=== PATIENT | male | born 1965 | race Hispanic/Latino ===

== ENCOUNTER 2020-11-03 12:58 | Emergency (ER) | payer MEDICAID ==
[2020-11-03 14:07] LABS: Bilirubin,Urine NEG (Negative); Blood,Urine NEG (Negative); Color,Urine Yellow (Yellow); Mucus,Urine FEW /HPF; Protein,Urine <15 mg/dL mg/dL (Negative); Urobilinogen,Urine < 2.0 mg/dL (<2.0)
[2020-11-03 14:35] LABS: Basophils % (Auto) 0.6 % (0.0-1.8); Eosinophils # (Auto) 0.1 K/mm3 (0.0-0.4); Eosinophils % (Auto) 2.1 % (0.0-4.3); Hematocrit 34.1 % (35.5-45.6); Hemoglobin 12.2 gm/dl (11.8-15.2); Lymphocytes # (Auto) 1.6 K/mm3 (1.2-5.4); Lymphocytes % (Auto) 27.6 % (13.4-35.0); Mean Corpuscular HGB Conc 36 % (32-34); Mean Corpuscular Volume 97 fl (84-94); Monocytes # (Auto) 0.7 K/mm3 (0.0-0.8); Monocytes % (Auto) 11.5 % (0.0-7.3); Platelet Count 263 K/mm3 (140-440); Red Cell Distribution Width 12.7 % (13.2-15.2)
[2020-11-03 15:03] LABS: Alanine Aminotransferase 27 units/L (7-56); Albumin 4.4 g/dL (3.9-5); BUN/Creatinine Ratio 13; Blood Urea Nitrogen 14 mg/dL (9-20); Calcium 8.8 mg/dL (8.4-10.2); Hemolysis Index 6
[2020-11-03] MEDS ORDERED: ONDANSETRON 4 MG/2 ML INJ IV ONE (17:04)
[2020-11-03] MEDS ORDERED: HYDROmorphone 1 MG/1 ML INJ IV ONE ×2 (17:04→20:08)
[2020-11-03] MEDS ORDERED: SODIUM CHLORIDE 0.9% 1000 ML 1,000 ML IV ONE (17:04)
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
[2020-11-03 22:32] VITALS: BP 140/85
== END 2020-11-03 22:31 | disposition home or self-care (01) ==
LOC: ED 12:58
DX: R10.84 Generalized abdominal pain (principal); R14.0 Abdominal distension (gaseous); R11.0 Nausea; I10 Essential (primary) hypertension; M19.90 Unspecified osteoarthritis, unspecified site; F32.9 Major depressive disorder, single episode, unspecified; G47.00 Insomnia, unspecified; Z86.69 Personal history of other diseases of the nervous system and sense organs; Z87.891 Personal history of nicotine dependence; Z72.89 Other problems related to lifestyle; Z79.899 Other long term (current) drug therapy
CPT/HCPCS: 36415; 74177; 80053; 81001; 83690; 85025; 87086; 96361; 96374; 96375; 96376; 99284; J1170; J2405; J7030; Q9967

== ENCOUNTER 2021-02-06 16:45 | Emergency (ER) | payer MEDICAID ==
[2021-02-06 17:05] VITALS: BP 123/74
[2021-02-06] MEDS ORDERED: ONDANSETRON 4 MG/2 ML INJ IV ONE (17:46)
[2021-02-06] MEDS ORDERED: SODIUM CHLORIDE 0.9% 1000 ML 1,000 ML IV ONE (17:46)
[2021-02-06] MEDS ORDERED: FAMOTIDINE 20 MG/2 ML INJ IV ONE (17:46)
[2021-02-06] MEDS ORDERED: HYDROmorphone 1 MG/1 ML INJ IV ONE (17:46)
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
[2021-02-06 18:43] LABS: Basophils % (Auto) 0.5 % (0.0-1.8); Eosinophils # (Auto) 0.1 K/mm3 (0.0-0.4); Eosinophils % (Auto) 2.1 % (0.0-4.3); Hematocrit 32.1 % (35.5-45.6); Hemoglobin 11.4 gm/dl (11.8-15.2); Lymphocytes # (Auto) 1.1 K/mm3 (1.2-5.4); Lymphocytes % (Auto) 16.9 % (13.4-35.0); Mean Corpuscular HGB Conc 36 % (32-34); Mean Corpuscular Volume 98 fl (84-94); Monocytes # (Auto) 0.7 K/mm3 (0.0-0.8); Monocytes % (Auto) 11.7 % (0.0-7.3); Platelet Count 207 K/mm3 (140-440); Red Blood Count 3.28 M/mm3 (3.65-5.03); Red Cell Distribution Width 12.5 % (13.2-15.2)
[2021-02-06 18:51] LABS: Alanine Aminotransferase 19 units/L (7-56); Albumin 3.9 g/dL (3.9-5); BUN/Creatinine Ratio 16; Blood Urea Nitrogen 14 mg/dL (9-20); Calcium 8.9 mg/dL (8.4-10.2); Hemolysis Index 163
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
[2021-02-06] MEDS ORDERED: MORPHINE 2 MG/1 ML INJ IV ONE (20:47)
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
== END 2021-02-06 21:45 | disposition home or self-care (01) ==
LOC: ED 16:45
DX: R10.84 Generalized abdominal pain (principal); R56.9 Unspecified convulsions; I10 Essential (primary) hypertension; Z87.891 Personal history of nicotine dependence; F10.20 Alcohol dependence, uncomplicated
CPT/HCPCS: 36415; 74177; 80053; 83690; 85025; 96361; 96374; 96375; 99284; J1170; J2270; J2405; J7030; Q9967

== ENCOUNTER 2021-12-20 11:14 | Inpatient (IN) | payer MEDICAID ==
[2021-12-20 12:46] LABS: Hemoglobin 13.3 gm/dl (11.8-15.2); Mean Corpuscular HGB Conc 34 % (32-34); Mean Corpuscular Volume 98 fl (84-94); Platelet Count 261 K/mm3 (140-440); Red Cell Distribution Width 13.1 % (13.2-15.2)
[2021-12-20 13:09] LABS: Alanine Aminotransferase 42 units/L (7-56); Albumin 4.8 g/dL (3.9-5); BUN/Creatinine Ratio 15; Blood Urea Nitrogen 16 mg/dL (9-20); Calcium 9.1 mg/dL (8.4-10.2); Hemolysis Index 20
[2021-12-20] MEDS ORDERED: FAMOTIDINE 20 MG/2 ML INJ IV ONE (16:06)
[2021-12-20] MEDS ORDERED: HYDROmorphone 1 MG/1 ML INJ IV ONE ×2 (16:06→18:37)
[2021-12-20] MEDS ORDERED: ONDANSETRON 4 MG/2 ML INJ IV ONE (16:06)
[2021-12-20] MEDS ORDERED: SODIUM CHLORIDE 0.9% 1000 ML 1,000 ML IV ONE (16:06)
[2021-12-20 17:09] LABS: Basophils % (Manual) 0 % (0.0-1.8); Large Platelets 1+; RBC Morphology Normal; Total Cells Counted 100
[2021-12-20 17:10] LABS: Platelet Estimate Consistent w Auto
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
[2021-12-20] MEDS ORDERED: LIDOCAINE VISCOUS 2% 15 ML ORAL LIQD PO ONE (18:32)
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
[2021-12-20] MEDS ORDERED: ACETAMINOPHEN 325 MG TAB PO PRN (19:00)
[2021-12-20] MEDS ORDERED: ONDANSETRON 4 MG/2 ML INJ IV PRN (19:00)
[2021-12-20] MEDS ORDERED: MIDAZOLAM 2 MG/2 ML INJ IV NR (19:00)
[2021-12-20] MEDS ORDERED: ALBUTEROL 2.5 MG/3 ML NEBU IH PRN (19:00)
[2021-12-20] MEDS ORDERED: oxyCODONE /ACETAMINOPHEN 5-325MG TAB PO PRN (19:00)
--- NOTE | 2021-12-20 20:04 | XRay Report ---
Abdomen single view INDICATION: Abdominal pain IMPRESSION: Esophagogastric tube terminates in the region of the upper stomach. Signer Name: Solomon Cyr MD Signed: 12/20/2021 8:00 PM Workstation Name: [email or web address]
[2021-12-20] MEDS: HYDROmorphone 0.5 MG/0.5 ML INJ IV PRN (23:12)
[2021-12-21] MEDS: SODIUM CHLORIDE 0.9% 1000 ML 1,000 ML IV SCH ×3 (01:40→22:05)
[2021-12-21] MEDS ORDERED: HYDROmorphone 0.5 MG/0.5 ML INJ IV ONE (03:30)
[2021-12-21] MEDS ORDERED: ZOLPIDEM 5 MG TAB PO ONE (03:50)
[2021-12-21 05:41] LABS: BUN/Creatinine Ratio 16; Blood Urea Nitrogen 14 mg/dL (9-20); Calcium 8.7 mg/dL (8.4-10.2); Hemolysis Index 13
[2021-12-21] MEDS: HYDROmorphone 0.5 MG/0.5 ML INJ IV PRN ×2 (09:24→17:16)
[2021-12-21] MEDS ORDERED: LORazepam 2 MG/ML VIAL IV PRN (09:51)
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
[2021-12-21] MEDS: hydrALAZINE 20 MG/1 ML INJ IV PRN ×3 (11:12→22:03)
[2021-12-21] MEDS: LORazepam 0.5 MG TAB PO PRN (13:01)
[2021-12-21] MEDS: levETIRAcetam 250 MG in DEXTROSE 5% IN WATER (50 ML) 50 ML IV SCH ×2 (13:01→23:25)
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
[2021-12-21] MEDS ORDERED: ZOLPIDEM 5 MG TAB PO SCH (23:01)
[2021-12-22] MEDS: LORazepam 0.5 MG TAB PO PRN (01:14)
[2021-12-22] MEDS: HYDROmorphone 0.5 MG/0.5 ML INJ IV PRN ×3 (01:14→17:19)
[2021-12-22] MEDS ORDERED: DICYCLOMINE 20 MG TAB PO PRN (08:06)
[2021-12-22] MEDS ORDERED: BUTALB/ACETAMINOPHEN/CAFFEINE TAB PO PRN (08:06)
[2021-12-22] MEDS ORDERED: ALPRAZolam 1 MG TAB PO PRN (08:06)
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
[2021-12-22] MEDS: levETIRAcetam 500 MG TAB PO SCH ×2 (09:41→22:11)
[2021-12-22] MEDS: LOSARTAN 50 MG TAB PO SCH (09:41)
[2021-12-22] MEDS: FENOFIBRATE 145 MG TAB PO SCH (09:42)
[2021-12-22] MEDS ORDERED: NIFEdipine XL 60 MG TAB PO SCH (10:00)
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
[2021-12-22] MEDS ORDERED: ONDANSETRON AS SCH (14:00)
[2021-12-22] MEDS ORDERED: SODIUM CHLORIDE AS SCH (14:00)
[2021-12-22] MEDS: GABAPENTIN 300 MG CAP PO SCH ×2 (14:00→22:09)
[2021-12-22] MEDS: CYCLOBENZAPRINE 10 MG TAB PO SCH ×2 (14:01→22:09)
[2021-12-22] MEDS: SODIUM CHLORIDE 0.9% 1000 ML 1,000 ML IV SCH ×2 (14:07→22:11)
[2021-12-22] MEDS ORDERED: TAMSULOSIN 0.4 MG CAP PO SCH (22:00)
[2021-12-22] MEDS ORDERED: ZOLPIDEM 5 MG TAB PO PRN (22:00)
[2021-12-22] MEDS ORDERED: TAMSULOSIN PO SCH (22:00)
[2021-12-22] MEDS: hydrALAZINE 20 MG/1 ML INJ IV PRN (22:12)
[2021-12-23 05:27] LABS: Basophils % (Auto) 0.4 % (0.0-1.8); Eosinophils # (Auto) 0.1 K/mm3 (0.0-0.4); Eosinophils % (Auto) 0.9 % (0.0-4.3); Hematocrit 39.2 % (35.5-45.6); Hemoglobin 13.3 gm/dl (11.8-15.2); Lymphocytes # (Auto) 0.9 K/mm3 (1.2-5.4); Lymphocytes % (Auto) 11.6 % (13.4-35.0); Mean Corpuscular HGB Conc 34 % (32-34); Mean Corpuscular Volume 97 fl (84-94); Monocytes # (Auto) 0.8 K/mm3 (0.0-0.8); Monocytes % (Auto) 9.4 % (0.0-7.3); Platelet Count 265 K/mm3 (140-440); Red Blood Count 4.06 M/mm3 (3.65-5.03)
[2021-12-23] MEDS: CYCLOBENZAPRINE 10 MG TAB PO SCH ×2 (05:28→13:06)
[2021-12-23] MEDS: HYDROmorphone 0.5 MG/0.5 ML INJ IV PRN (05:28)
[2021-12-23] MEDS: GABAPENTIN 300 MG CAP PO SCH ×2 (05:28→13:06)
[2021-12-23] MEDS: SODIUM CHLORIDE 0.9% 1000 ML 1,000 ML IV SCH ×2 (05:28→13:06)
[2021-12-23 05:49] LABS: BUN/Creatinine Ratio 15; Blood Urea Nitrogen 12 mg/dL (9-20); Calcium 8.9 mg/dL (8.4-10.2); Hemolysis Index 6
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
[2021-12-23] MEDS ORDERED: DICYCLOMINE 20 MG TAB PO PRN (09:48)
[2021-12-23] MEDS ORDERED: CITALOPRAM HYDROBROMIDE 40 MG PO SCH (10:00)
[2021-12-23] MEDS ORDERED: NIFEdipine XL 60 MG TAB PO SCH (10:00)
[2021-12-23] MEDS ORDERED: TAMSULOSIN 0.4 MG CAP PO SCH (10:00)
[2021-12-23] MEDS ORDERED: FENOFIBRATE 145 MG TAB PO SCH (10:00)
[2021-12-23] MEDS: levETIRAcetam 500 MG TAB PO SCH (10:13)
[2021-12-23] MEDS: FENOFIBRATE 145 MG TAB PO SCH (10:14)
[2021-12-23] MEDS: LOSARTAN 50 MG TAB PO SCH (10:14)
[2021-12-23] MEDS ORDERED: CITALOPRAM 20 MG TAB PO SCH (10:30)
[2021-12-23 16:53] VITALS: BP 181/98
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
--- NOTE | 2021-12-23 17:56 | Progress Note ---
Assessment and Plan Pt tolerated full liquid diet. OK to dc. Subjective Date of service: 12/23/21 Narrative: Pt tolerated full liquid diet. OK to dc. Objective Vital Signs - 12hr 12/23/21 12/23/21 12/23/21 08:54 10:13 10:14 Temperature Pulse Rate 78 73 Respiratory Rate Blood Pressure 182/85 182/85 O2 Sat by Pulse 98 95 Oximetry 12/23/21 12/23/21 12/23/21 11:00 11:21 16:07 Temperature 98.3 F 98.1 F Pulse Rate 85 82 Respiratory 20 18 18 Rate Blood Pressure 176/97 181/98 O2 Sat by Pulse 98 92 93 Oximetry - Labs 12/23/21 04:43 12/23/21 04:43 Diabetes panel 12/23/21 Range/Units 04:43 Sodium 135 L (137-145) mmol/L Potassium 4.0 (3.6-5.0) mmol/L Chloride 103.9 (98-107) mmol/L Carbon Dioxide 21 L (22-30) mmol/L BUN 12 (9-20) mg/dL Creatinine 0.8 (0.8-1.3) mg/dL Glucose 116 H (75-100) mg/dL Calcium 8.9 (8.4-10.2) mg/dL Calcium panel 12/23/21 Range/Units 04:43 Calcium 8.9 (8.4-10.2) mg/dL Pituitary panel 12/23/21 Range/Units 04:43 Sodium 135 L (137-145) mmol/L Potassium 4.0 (3.6-5.0) mmol/L Chloride 103.9 (98-107) mmol/L Carbon Dioxide 21 L (22-30) mmol/L BUN 12 (9-20) mg/dL Creatinine 0.8 (0.8-1.3) mg/dL Glucose 116 H (75-100) mg/dL Calcium 8.9 (8.4-10.2) mg/dL Adrenal panel 12/23/21 Range/Units 04:43 Sodium 135 L (137-145) mmol/L Potassium 4.0 (3.6-5.0) mmol/L Chloride 103.9 (98-107) mmol/L Carbon Dioxide 21 L (22-30) mmol/L BUN 12 (9-20) mg/dL Creatinine 0.8 (0.8-1.3) mg/dL Glucose 116 H (75-100) mg/dL Calcium 8.9 (8.4-10.2) mg/dL
[2021-12-23] MEDS ORDERED: AMITRIPTYLINE 25 MG TAB PO SCH (22:00)
[2021-12-23] MEDS ORDERED: AMITRIPTYLINE 100 MG PO SCH (22:00)
--- NOTE | 2021-12-24 13:48 | Electrocardiograph Report ---
[facility] Test Date: 2021-12-21 Test Time: 13:02:30 Pat Name: XIAO CONNOR Department: Room: A373 1 Gender: M [employer] Agent: STEVE : 1965 Requested By: SHWETA CANTOR Order Number: [id number] Reading MD: Monica Schreiber Measurements Intervals [place] Rate: 89 P: 55 [place]: 161 QRS: 38 QRSD: 104 T: 66 QT: 387 QTc: 472 Interpretive Statements Sinus rhythm No previous ECG available for comparison Electronically Signed On 12-24-2021 13:48:32 EDT by Monica Schreiber
== END 2021-12-23 18:35 | disposition home or self-care (01) | DRG 390 ==
LOC: ED 11:14 → 3A 18:36
PROVIDERS: ADMIT Internal Medicine; ATTEND Hospitalist
PROC: 0D9670Z Drainage of Stomach with Drainage Device, Via Natural or Artificial Opening (ICD-10-PCS; principal; 2021-12-20)
DX: K56.50 Intestinal adhesions [bands], unspecified as to partial versus complete obstruction (principal); I10 Essential (primary) hypertension; G40.909 Epilepsy, unspecified, not intractable, without status epilepticus; M19.90 Unspecified osteoarthritis, unspecified site; G62.9 Polyneuropathy, unspecified; E66.9 Obesity, unspecified; F32.9 Major depressive disorder, single episode, unspecified; M51.9 Unspecified thoracic, thoracolumbar and lumbosacral intervertebral disc disorder; Z68.33 Body mass index [BMI] 33.0-33.9, adult; Z82.49 Family history of ischemic heart disease and other diseases of the circulatory system; Z88.8 Allergy status to other drugs, medicaments and biological substances; K42.9 Umbilical hernia without obstruction or gangrene
CPT/HCPCS: 36415; 74018; 74177; 80048; 80053; 83690; 84484; 85007; 85025; 87641; 93005; 99285; G0378; J3490; J0360; J1170; J1953; J2250; J2405; J7030; Q9967